=== PATIENT | female | born 1980 | race Hispanic/Latino ===

== ENCOUNTER 2019-05-26 16:08 | Observation (INO) | payer BC ==
[2019-05-25 10:28] LABS: Basophils % (Auto) 0.9 % (0.0-1.8); Eosinophils # (Auto) 0.1 K/mm3 (0.0-0.4); Eosinophils % (Auto) 1.6 % (0.0-4.3); Hematocrit 36.7 % (30.3-42.9); Hemoglobin 12.4 gm/dl (10.1-14.3); Lymphocytes # (Auto) 1.1 K/mm3 (1.2-5.4); Lymphocytes % (Auto) 21.2 % (13.4-35.0); Mean Corpuscular HGB Conc 34 % (30-34); Mean Corpuscular Volume 96 fl (79-97); Monocytes # (Auto) 0.4 K/mm3 (0.0-0.8); Monocytes % (Auto) 7.1 % (0.0-7.3); Platelet Count 384 K/mm3 (140-440); Red Blood Count 3.84 M/mm3 (3.65-5.03)
[2019-05-25 10:53] LABS: BUN/Creatinine Ratio 35; Blood Urea Nitrogen 14 mg/dL (7-17); Calcium 9.3 mg/dL (8.4-10.2); Hemolysis Index 11
--- NOTE | 2019-05-25 11:05 | Anesthesia Consultation ---
Anesthesia Consult and Med Hx Date of service: 05/25/19 - Airway Anesthetic Teeth Evaluation: Poor, Partials ROM Head & Neck: Adequate Mental/Hyoid Distance: Adequate Mallampati Class: Class II Intubation Access Assessment: Good - Pulmonary Exam CTA: Yes - Cardiac Exam Cardiac Exam: RRR - Pre-Operative Health Status ASA Pre-Surgery Classification: ASA2 Proposed Anesthetic Plan: General Nerve Block: TAP - Pulmonary Hx Smoking: Yes - Central Nervous System Hx Psychiatric Problems: No - Hematic Hx Anemia: Yes - Other Systems Hx Alcohol Use: Yes (Occas) Hx Cancer: No
--- NOTE | 2019-05-26 10:23 | Anesthesia Day of Surgery ---
Anesthesia Day of Surgery - Day of Surgery Patient Examined: Yes Patient H&P Reviewed: Yes Patient is NPO: Yes
--- NOTE | 2019-05-26 10:47 | History and Physical Report ---
History of Present Illness Date of examination: 05/26/19 Chief complaint: Symptomatic uterine fibroids History of present illness: Pt is a 38yo WF LMP 05/14/19 presents for surgical evaluation and treatment of uterine fibroids. She complains of chronic pelvic pain and prolonged vaginal bleeding. Pelvic u/s showed the uterus measuring 9.5 x 4.5 x 6.1cm with multiple uterine fibroids, the largest a lower uterine segment fibroid 5.7 x 4.4 x 3.3cm. She desires a Robotic Assisted Total Hysterectomy with ovarian conservation. Past History Past Medical History: diabetes (NIDDM) Past Surgical History: section [employer] History: fibroids Social history: no significant social history, Medications and Allergies Allergies Allergy/AdvReac Type Severity Reaction Status Date / Time morphine Allergy Itching Verified 05/21/19 15:35 Home Medications Medication Instructions Recorded Confirmed Last Taken Type Cyanocobalamin (Vitamin B-12) 2,000 mcg PO DAILY 05/21/19 05/21/19 Unknown History [Vitamin B-12] Ferrous Sulfate [Iron 325 MG] 325 mg PO DAILY 05/21/19 05/21/19 Unknown History Folic Acid 20 mg PO QDAY 05/21/19 05/21/19 Unknown History Sitagliptin Phosphate [Januvia] 100 mg PO DAILY 05/21/19 05/21/19 Unknown History Active Meds: Active Medications Fentanyl (Sublimaze) 50 mcg IV Q5MIN PRN PRN Reason: Pain , Severe (7-10) Lactated Ringer's (Lactated Ringers) 1,000 mls @ 100 mls/hr IV DIRECT KATIE Midazolam HCl (Versed) 2 mg IV PREOP NR Stop: 05/26/19 23:59 Ondansetron HCl (Zofran) 4 mg IV ONCE PRN PRN Reason: Nausea And Vomiting Review of Systems All systems: negative - Vital Signs Vital signs: Vital Signs Temp Pulse Resp BP Pulse Ox 97.6 F 98 H 20 95/56 99 05/25/19 10:10 05/25/19 10:10 05/25/19 10:10 05/25/19 10:10 05/25/19 10:10 Temp Pulse Resp BP Pulse Ox 97.6 F 98 H 20 95/56 99 05/25/19 10:10 05/25/19 10:10 05/25/19 10:10 05/25/19 10:10 05/25/19 10:10 - Physical Exam Breasts: Positive: deferred Cardiovascular: Regular rate Lungs: Positive: Clear to auscultation Abdomen: Positive: normal appearance Genitourinary (Female): Positive: normal external genitalia Vagina: Positive: normal moisture Uterus: Positive: enlarged Anus/Rectum: Positive: normal perianal skin Extremities: Positive: normal Results Result Diagrams: 05/27/19 05:23 05/25/19 10:10 Abnormal lab results 05/25/19 Range/Units 10:10 Creatinine 0.4 L (0.7-1.2) mg/dL Glucose 281 H (65-100) mg/dL All other labs normal. Ultrasound: report reviewed Assessment and Plan - Patient Problems (1) Uterine fibroid Onset Date: 05/26/19 Current Visit: No Status: Resolved Qualifiers: Uterine leiomyoma location: intramural, submucous, and subserous Qualified Code(s): D25.1 - Intramural leiomyoma of uterus; D25.0 - Submucous leiomyoma of uterus; D25.2 - Subserosal leiomyoma of uterus Plan to address problem: A: Symptomatic uterine fibroids Menorrhagia NIDDM P: Admit to L&D for a Robotic Assisted Total Hysterectomy with Bilateral salpingectomy.
--- NOTE | 2019-05-26 14:22 | Operative Report ---
Operative Report Operative Report: Pre-operative diagnosis: Symptomatic uterine fibroids Post-operative diagnosis: Same with extensive uterine adhesions Procedure : 1. Robotic-assisted total hysterectomy 2. Bilateral salpingectomy 3. Lysis of extensive uterine adhesions Surgeon: Gonzalo Nicole MD Call Center Consultant: Bianca Taveras CSA Anesthesia: KRISTEN Block followed by general endotracheal intubation EBL: <100 mL's Findings: A 10-12 weeks size uterus densely adherent to the left anterior abdominal wall with normal tubes and ovaries bilaterally. Omental adhesions to the anterior abdominal wall. Procedure: After the patient's first correctly identified she was prepped and draped in the usual sterile fashion and placed in the dorsolithotomy position. The bladder was first catheterized using Hall catheter and the speculum was placed in the vagina and the anterior lip of the cervix was grasped using a single-tooth tenaculum, and the medium Vesicare cup was placed. The tenaculum and speculum was then removed from the vagina and attention was then turned to the abdomen. The skin knife was used to make a small incision approximately 5 cm above the umbilicus through which a 12 mm trocar was placed under direct visualization. After adequate amount of abdominal insufflation, visualization of the pelvic organs found the uterus to be enlarged and densely adherent to the left anterior abdominal wall, and the tubes and ovaries were normal bilaterally. A right and left paramedian incision was made through which the 8 mm trochars were placed under direct visualization and a 5 mm trocar was placed in the right lower quadrant. The patient was then placed in steep Trendelenburg positioning and the robot was docked on the patient's left side. After all the robotic ports were connected and adequate functioning of the robotic arms were tested the surgeon then proceeded to the console to begin the hysterectomy. First the Omental adhesions were taken down, then the dense adhesions from the uterus to the left abdominal wall was also taken down to restore normal anatomy. The left round ligament was grasped, cauterized and cut, the left utero-ovarian ligaments were grasped, cauterized and cut, and the left fallopian tube also grasped, cauterized and cut along the mesosalpinx, thus freeing the left ovary from the left uterine sidewall. The same procedure was performed on the right. The right round ligament was grasped, cauterized and cut, the right utero- ovarian ligaments were grasped, cauterized and cut, and the right fallopian tube also grasped, cauterized and cut along the mesosalpinx, thus freeing the right ovary from the right uterine sidewall. The bladder flap was taken down anteriorly and the uterine vessels were grasped, cauterized and cut bilaterally. The cardinal ligaments were sequentially grasped, cauterized and cut down to the level of the uterosacral ligaments. There was a large lower uterine segment fibroid that made the dissection difficult. At this time the posterior colpotomy was performed over the Vcare cup, and the cervix was circumscribed beginning posteriorly and meeting anteriorly until the cervix was freed. The cervix and uterus was then removed through the vagina and sent to pathology. The vaginal cuff was then closed using 2-0 Vloc suture in a running fashion. Irrigation was then performed and after good hemostasis was achieved the procedure was considered complete. The Tisseel sealant was then sprayed across the vaginal cuff site, and after excellent hemostasis was assured, Interceed was placed across the vaginal cuff site. The abdominal pressure was reduced to 8 mmHg and excellent hemostasis was assured. All instruments were then removed from the abdominal cavity. Each incision was closed using 0 Vicryl suture in a [id number] configuration on the fascia followed by 4-0 Monocryl suture in a sub-cuticular fashion on the skin. Each incision was also infiltrated using 0.5% Marcaine solution. The vaginal pack was removed. The patient tolerated the procedure well and was transported to the recovery room in stable condition.
[2019-05-26] MEDS: SUBLIMAZE IV PRN ×3 (14:39→15:22)
[2019-05-26] MEDS: LACTATED RINGERS 1,000 ML IV SCH ×2 (16:00→20:38)
--- NOTE | 2019-05-26 16:04 | Post Anesthesia Evaluation ---
- Post Anesthesia Evaluation Patient Participated: Yes Airway Patent: Yes Stable Respiratory Function: Yes Nausea/Vomiting: No Temp > 96.8F: Yes Pain Manageable: Yes Adequeate Hydration: Yes Anesthesia Complications: No Block Receding Appropriately: Not Applicable Patient on Ventilator: No
[~2019-05-26 16:08] MED LIST: ANCEF/STERILE WATER 2 GM/20 ML 2 GM/20 ML SYRINGE IV NR; BLOXIVERZ ONE; D50W (25GM) Syringe IV PRN; D5LR 1,000 ML IV SCH; DECADRON ONE; DILAUDID IV PRN; DIPRIVAN 10 MG/ML IV ONE; HumuLIN R IV NR; HumuLIN R IV ONE; LACTATED RINGERS 1,000 ML IV SCH; MARCAINE-EPI 0.5%-1:200,000 INFILTRATI ONE; MILK OF MAGNESIA PO PRN; NACL 0.9% IR ONE; NEOSPORIN GU IR ONE; NORCO 5/325 PO PRN; PERCOCET 5/325 PO PRN; REGLAN ONE; ROBINUL ONE; SUBLIMAZE ONE; TORADOL ONE; TYLENOL PO PRN; VERSED IV NR; XYLOCAINE 1% 20 mL ONE; XYLOCAINE MPF 2% ONE; ZEMURON IV ONE; ZOFRAN IV PRN; ZOFRAN ONE
[2019-05-26] MEDS: TORADOL IV SCH (19:39)
[2019-05-26] MEDS: ANCEF/NS 1 GM/50 ML 1 GM/50 ML BAG IV SCH (19:39)
[2019-05-26] MEDS: HumuLIN R SUB-Q SCH (20:37)
[2019-05-26] MEDS: COLACE PO SCH (23:08)
[2019-05-27] MEDS: TORADOL IV SCH ×2 (02:26→09:48)
[2019-05-27] MEDS: HumuLIN R SUB-Q SCH ×2 (02:36→09:33)
[2019-05-27] MEDS: ANCEF/NS 1 GM/50 ML 1 GM/50 ML BAG IV SCH (03:44)
[2019-05-27 05:41] LABS: Hematocrit 30.7 % (30.3-42.9); Hemoglobin 10.6 gm/dl (10.1-14.3)
[2019-05-27] MEDS: LACTATED RINGERS 1,000 ML IV SCH (06:45)
[2019-05-27] MEDS ORDERED: TRADJENTA PO SCH (08:00)
[2019-05-27 09:19] VITALS: BP 94/54
--- NOTE | 2019-05-27 09:34 | Progress Note ---
Assessment and Plan - Patient Problems (1) Uterine fibroid Onset Date: 05/26/19 Current Visit: No Status: Resolved Qualifiers: Uterine leiomyoma location: intramural, submucous, and subserous Qualified Code(s): D25.1 - Intramural leiomyoma of uterus; D25.0 - Submucous leiomyoma of uterus; D25.2 - Subserosal leiomyoma of uterus (2) Status post robot-assisted surgical procedure Onset Date: 05/27/19 Current Visit: Yes Status: Resolved Plan to address problem: A: S/P RATH - POD #1 Doing well Asymptomatic anemia - stable NIDDM - stable P: May go home today. Subjective - Subjective Date of service: 05/27/19 Principal diagnosis: s/p RATH - POD #1 Interval history: Pt is feeling well without complaints. She is tolerating a reg diet without nausea or vomiting, ambulating and voiding without difficulty. Patient reports: appetite normal, voiding normally, pain well controlled, flatus, ambulating normally, no dizzy ambulation, no nauseated Objective - Vital Signs Latest vital signs: Vital Signs Temp Pulse Pulse Resp BP BP Pulse Ox 05/27/19 08:50 98.1 F 85 18 94/54 96 05/27/19 04:31 98.2 F 94 H 20 94/57 97 05/26/19 23:18 98.5 F 105 H 20 95/51 97 05/26/19 20:00 68 16 05/26/19 19:37 98.1 F 98 H 20 107/68 98 05/26/19 15:55 97.3 F L 91 H 20 115/71 100 05/26/19 15:30 89 14 115/72 100 05/26/19 15:15 91 H 16 112/67 100 05/26/19 15:00 97.5 F L 93 H 18 111/68 100 05/26/19 14:45 88 20 111/63 100 05/26/19 14:30 83 20 113/74 100 05/26/19 14:25 93 H 20 113/67 100 05/26/19 14:20 90 20 113/66 100 05/26/19 14:13 97.3 F L 98 H 20 126/65 100 05/26/19 12:03 105 H 16 99/55 100 05/26/19 11:58 97 H 18 94/47 100 05/26/19 11:53 91 H 18 92/57 100 05/26/19 11:48 89 12 104/65 100 05/26/19 11:43 89 11 L 105/63 100 05/26/19 11:38 90 15 99/62 98 05/26/19 10:30 98.5 F 83 16 114/63 100 05/26/19 10:17 98.5 F 83 16 114/63 100 Intake and Output 05/26/19 05/27/19 05/27/19 22:59 06:59 14:59 Intake Total 393.149 3870 Output Total 80 1050 Balance 589.167 50 Intake: IV 953.933 3239 ANCEF/NS 1 GM/50 ML 1 gm 50 In 50 ml @ 100 mls/hr IV Q8H KATIE Rx#:[id number] Lactated Ringers 1,000 ml 241.540 3008 @ 125 mls/hr IV DIRECT KATIE Rx#:[id number] Oral 40 100 Output: Urine 80 1050 Indwelling Catheter 30 1050 Other: Total, Intake Amount 40 100 Total, Output Amount 30 600 - Exam Abdomen: Present: normal appearance, soft Incision: Present: normal, dry, intact - Labs Labs: Abnormal lab results 05/26/19 05/26/19 05/26/19 Range/Units 11:10 11:14 14:36 POC Glucose 305 H 298 H 324 H (70-105) 05/26/19 05/26/19 05/27/19 Range/Units 15:33 20:30 02:39 POC Glucose 211 H 336 H 201 H (70-105) 05/27/19 Range/Units 09:20 POC Glucose 138 H (70-105) Laboratory Tests 05/25/19 05/25/19 05/25/19 10:10 10:10 10:10 WBC 5.3 RBC 3.84 Hgb 12.4 Hct 36.7 MCV 96 MCH 32 MCHC 34 RDW 13.0 L Plt Count 384 Lymph % (Auto) 21.2 [place] % (Auto) 7.1 Eos % (Auto) 1.6 Baso % (Auto) 0.9 Lymph # 1.1 L [place] # 0.4 Eos # 0.1 Baso # 0.0 Seg Neutrophils % 69.2 Seg Neutrophils # 3.6 Sodium 137 Potassium 4.5 Chloride 99.4 Carbon Dioxide 28 Anion Gap 14 BUN 14 Creatinine 0.4 L Estimated GFR > 60 BUN/Creatinine Ratio 35 Glucose 281 H POC Glucose Calcium 9.3 HCG, Qual Negative Blood Type Antibody Screen 05/26/19 05/26/19 05/26/19 10:40 11:10 11:14 WBC RBC Hgb Hct MCV MCH MCHC RDW Plt Count Lymph % (Auto) [place] % (Auto) Eos % (Auto) Baso % (Auto) Lymph # [place] # Eos # Baso # Seg Neutrophils % Seg Neutrophils # Sodium Potassium Chloride Carbon Dioxide Anion Gap BUN Creatinine Estimated GFR BUN/Creatinine Ratio Glucose POC Glucose 305 H 298 H Calcium HCG, Qual Blood Type O POSITIVE Antibody Screen Negative 05/26/19 05/26/19 05/26/19 14:36 15:33 20:30 WBC RBC Hgb Hct MCV MCH MCHC RDW Plt Count Lymph % (Auto) [place] % (Auto) Eos % (Auto) Baso % (Auto) Lymph # [place] # Eos # Baso # Seg Neutrophils % Seg Neutrophils # Sodium Potassium Chloride Carbon Dioxide Anion Gap BUN Creatinine Estimated GFR BUN/Creatinine Ratio Glucose POC Glucose 324 H 211 H 336 H Calcium HCG, Qual Blood Type Antibody Screen 05/27/19 05/27/19 05/27/19 02:39 05:23 09:20 WBC RBC Hgb 10.6 Hct 30.7 D MCV MCH MCHC RDW Plt Count Lymph % (Auto) [place] % (Auto) Eos % (Auto) Baso % (Auto) Lymph # [place] # Eos # Baso # Seg Neutrophils % Seg Neutrophils # Sodium Potassium Chloride Carbon Dioxide Anion Gap BUN Creatinine Estimated GFR BUN/Creatinine Ratio Glucose POC Glucose 201 H 138 H Calcium HCG, Qual Blood Type Antibody Screen
[2019-05-27] MEDS: COLACE PO SCH (09:44)
--- NOTE | 2019-05-27 09:55 | Discharge Summary ---
Providers - Providers Date of Admission: 05/26/19 16:09 Date of discharge: 05/27/19 Attending physician: LYNDSAY QUINTANA Hospitalization Reason for admission: other (Symptomatic uterine fibroids; Menorrhagia) Procedure: other (Robotic Assisted Total Hysterectomy with Bilateral salpingectomy) Episiotomy: none Laceration: none Incision: normal, dry, intact Other procedures: none complications: none Discharge diagnosis: other (s/p RATH) Hospital course: Pt is a 38yo WF LMP 05/14/19 who presented for surgical evaluation and treatment of uterine fibroids. She complained of chronic pelvic pain and prolonged vaginal bleeding. Pelvic u/s showed the uterus measured 9.5 x 4.5 x 6.1cm with multiple uterine fibroids, the largest a lower uterine segment fibroid 5.7 x 4.4 x 3.3cm. She underwent an uncomplicated Robotic Assisted Total Hysterectomy with Bilateral salpingectomy and tolerated the procedure well. By POD #1 she was tolerating a reg diet without nausea or vomiting, ambulating and voiding without difficulty. She was therefore discharged to home on POD #1 in stable condition. Condition at discharge: Good Disposition: DC-01 TO HOME OR SELFCARE - Discharge Diagnoses (1) Uterine fibroid Status: Resolved Qualifiers: Uterine leiomyoma location: intramural, submucous, and subserous Qualified Code(s): D25.1 - Intramural leiomyoma of uterus; D25.0 - Submucous leiomyoma of uterus; D25.2 - Subserosal leiomyoma of uterus Plan - Discharge Medications Prescriptions: Ibuprofen [Motrin] 800 mg PO Q8HR PRN #30 tablet PRN Reason: Pain, Mild (1-3) oxyCODONE /ACETAMINOPHEN [Percocet 5/325 mg] 1 tab PO Q6H PRN #30 tablet PRN Reason: Pain, Moderate (4-6) - Provider Discharge Summary Activity: routine, no sex for 6 weeks, no heavy lifting 4 weeks, no strenuous exercise Diet: routine Instructions: routine Additional instructions: [] Smoking cessation referral if applicable(refer to patient education folder for contact #) [] Refer to [facility] Booklet Call your doctor immediately for: * Fever > 100.5 * Heavy vaginal bleeding ( >1 pad per hour) * Severe persistent headache * Shortness of breath * Reddened, hot, painful area to leg or breast * Drainage or odor from incision. * Keep incision clean and dry at all times and follow doctor's instructions regarding bathing/showering - Follow up plan Follow up: LYNDSAY QUINTANA MD [Staff Physician] - 14 Days HORTENSIA JOHNSTON [Other] - 14 Days
== END 2019-05-27 14:35 | disposition home or self-care (01) ==
LOC: OR 16:08 → OB 16:09
PROVIDERS: ADMIT Obstetrics & Gynecology; ATTEND Obstetrics & Gynecology
DX: D25.9 Leiomyoma of uterus, unspecified (principal); E11.9 Type 2 diabetes mellitus without complications
CPT/HCPCS: 36415; 58552; 64450; 80048; 82962; 84703; 85014; 85018; 85025; 86850; 86900; 86901; 88307; 88342; 96365; 96366; 96372; 96375; 96376; A4217; C1765; C9250; G0378; J0690; J1100; J1885; J2250; J2405; J2704; J2710; J2765; J3010; J7120; S2900; J1815